=== PATIENT | female | born 2000 | race Caucasian/White ===

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

== ENCOUNTER → 2020-01-01 | Outpatient (REF) | payer BC, MEDICAID | LOC: M PLALAB 16:43 | PROVIDERS: ATTEND Advanced Practice Midwife | DX: Z34.03 Encounter for supervision of normal first pregnancy, third trimester (principal); Z3A.00 Weeks of gestation of pregnancy not specified ==

== ENCOUNTER → 2020-01-06 | Outpatient (CLI) | payer BC, MEDICAID ==
--- NOTE | 2020-01-06 14:26 | REP ---
Clinical: Growth evaluation. Comparison: 12/06/2019 . Findings: Examination demonstrates a single live intrauterine in cephalic presentation. motion is identified by technologist. Placenta is noted anterior and grade I I I without evidence for placenta previa or abruption. Amniotic fluid volume is normal. Cervix measures 3.8 cm in length and appears closed. No evidence for nuchal cord. Gestational age by LMP 37 weeks 3 days with EDIN 01/24/2020 . Gestational age by current measurements 35 weeks 3 days with EDIN 02/07/2020 . FHR equals 156 beats per minute. Estimated weight 2681 grams ( 24th percentile). Amniotic fluid index: 14.0 cm (7.4 - 24.2) Impression: Single live intrauterine in cephalic presentation demonstrating appropriate interval growth. Electronically Signed by Denny Woodall MD 01/06/2020 02:17 P
== END ==
LOC: M WHC 13:20
PROVIDERS: ATTEND Advanced Practice Midwife
DX: O26.843 Uterine size-date discrepancy, third trimester (principal); Z3A.35 35 weeks gestation of pregnancy

== ENCOUNTER 2020-01-18 09:25 | Inpatient (IN) | payer BC, MEDICAID | END 2020-01-20 08:00 | disposition home or self-care (01) | DRG 560 | LOC: M OBS 09:25 | PROVIDERS: ADMIT Obstetrics & Gynecology; ATTEND Obstetrics & Gynecology | PROC: 10E0XZZ Delivery of Products of Conception, External Approach (ICD-10-PCS; principal; 2020-01-18) | PROC: 10907ZC Drainage of Amniotic Fluid, Therapeutic from Products of Conception, Via Natural or Artificial Opening (ICD-10-PCS; 2020-01-18) | DX: O80 Encounter for full-term uncomplicated delivery (principal); Z3A.39 39 weeks gestation of pregnancy; Z37.0 Single live birth ==

== ENCOUNTER → 2020-08-06 | Outpatient (REF) | payer BC, MEDICAID ==
[2020-08-06 15:26] LABS: HEMOGLOBIN 12.2 g/dl (12.0-15.5); MEAN CORPUSCULAR HEMOGLOBIN 28.1 pg (27.0-33.0); MEAN CORPUSCULAR HGB CONC 31.3 g/dl (32.0-36.5); MEAN CORPUSCULAR VOLUME 89.9 fl (80.0-96.0); PLATELET COUNT, AUTOMATED 226 10^3/uL (150-450); RED BLOOD COUNT 4.34 10^6/uL (4.00-5.40); WHITE BLOOD COUNT 7.4 10^3/uL (4.0-10.0)
[2020-08-06 16:57] LABS: CHLAMYDIA DNA AMPLIFICATION NEGATIVE (NEGATIVE); GC DNA AMPLIFICATION NEGATIVE (NEGATIVE)
[2020-08-06 17:00] LABS: HEPATITIS C VIRUS ABY INDEX 0.1 INDEX (<0.8); HIV 1&2 SCREEN CENTAUR NEGATIVE (NEGATIVE)
== END ==
LOC: M PLALAB 14:14
PROVIDERS: ATTEND Advanced Practice Midwife
DX: Z34.91 Encounter for supervision of normal pregnancy, unspecified, first trimester (principal)

== ENCOUNTER → 2020-09-18 | Outpatient (CLI) | payer BC, MEDICAID ==
--- NOTE | 2020-09-18 13:31 | REP ---
INDICATION: ANATOMY. COMPARISON: None. TECHNIQUE: Standard 2nd trimester OB ultrasound anatomy screen. FINDINGS: Scanning demonstrates a viable single intrauterine gestation in a breech lie. motion is observed and heart rate is recorded at 152 beats per minute. A posterior, grade I placenta is seen without evidence of previa. Amniotic fluid is subjectively normal. Closed cervical length is measured at 3.1 cm transabdominally. No extrauterine abnormality is observed. Technologist notes indicate known EDIN 01/31/2021, 20 weeks 5 days today. No anomaly is seen. The following anatomic structures are identified and felt to be sonographically unremarkable: cranium, choroid plexus, cavum, cerebellum and posterior fossa, face and profile, lungs, four-chamber heart with left and right ventricular outflow tract views, diaphragm, left-sided stomach, abdominal wall cord insertion, three-vessel umbilical cord, kidneys and bladder and upper and lower extremities. The spine is incompletely evaluated due to the breech position. Biometry chart: BPD 4.3 cm; 19 weeks 0 days Head circumference 17.1 cm; 19 weeks 5 days Abdominal circumference 14.3 cm; 19 weeks 4 days Femur length 3.3 cm; 20 weeks 2 days Humeral length 3.2 cm; 20 weeks 4 days HC/AC ratio normal 1.20 Cephalic index 0.68 (0.7-0.86 normal range) Estimated weight 316 grams, 0 pounds 11 ounces, 10th percentile for 20 weeks 5 days. IMPRESSION: Viable single intrauterine gestation at 19 weeks 6 days by today's composite sonographic criteria. Expected gestational age estimate based on data provided is 20 weeks is 5 days. EDIN known 01/31/2021. No anomaly. Examination is incomplete in that the spine is incompletely evaluated due to breech position. This can be rechecked later in the 2nd trimester and growth may be reassessed. I do not know the source of the known EDIN provided nor am I aware of any prior ultrasound, none were done here. <Electronically signed by Ciaran Granado > 09/18/20 [id number]
== END ==
LOC: M WHC 09:24
PROVIDERS: ATTEND Obstetrics & Gynecology
DX: Z36.89 Encounter for other specified antenatal screening (principal); Z3A.20 20 weeks gestation of pregnancy

== ENCOUNTER → 2020-09-30 | Outpatient (CLI) | payer BC, MEDICAID | LOC: M WHC 15:27 | PROVIDERS: ATTEND Obstetrics & Gynecology | DX: Z53.20 Procedure and treatment not carried out because of patient's decision for unspecified reasons (principal) ==

== ENCOUNTER → 2020-10-19 | Outpatient (CLI) | payer BC, MEDICAID ==
--- NOTE | 2020-10-19 21:32 | REP ---
INDICATION: F/U ANATOMY COMPARISON: 09/18/2020 TECHNIQUE: Transabdominal obstetrical ultrasound with color Doppler evaluation. FINDINGS: Examination demonstrates a single live intrauterine in cephalic presentation. motion is identified by technologist. Placenta is noted posterior and grade 1 without evidence for placenta previa or abruption. Amniotic fluid volume is normal. Cervix measures 3.2 cm in length and appears closed.. Gestational age by LMP and 1st ultrasound 25 weeks 1 day with EDIN 01/31/2021. Gestational age by current measurements 24 weeks 3 days with EDIN 02/05/2021. FHR equals 151 beats per minute. Estimated weight 670 grams (10thpercentile). Anatomical assessment demonstrates normal structures including images of the spine. IMPRESSION: Single live intrauterine in cephalic presentation demonstrating relatively appropriate interval growth as above. In conjunction with prior examination anatomical assessment is complete and normal. <Electronically signed by Denny Woodall > 10/19/20 [id number]
== END ==
LOC: M WHC 15:29
PROVIDERS: ATTEND Obstetrics & Gynecology
DX: Z36.89 Encounter for other specified antenatal screening (principal); Z3A.22 22 weeks gestation of pregnancy

== ENCOUNTER → 2020-10-29 | Outpatient (REF) | payer BC, MEDICAID ==
[2020-10-29 15:32] LABS: HEMATOCRIT 34.1 % (36.0-47.0); HEMOGLOBIN 10.9 g/dl (12.0-15.5); MEAN CORPUSCULAR HEMOGLOBIN 27.5 pg (27.0-33.0); MEAN CORPUSCULAR VOLUME 86.1 fl (80.0-96.0); PLATELET COUNT, AUTOMATED 236 10^3/uL (150-450); RED BLOOD COUNT 3.96 10^6/uL (4.00-5.40); WHITE BLOOD COUNT 8.2 10^3/uL (4.0-10.0)
== END ==
LOC: M PLALAB 11:15
PROVIDERS: ATTEND Obstetrics & Gynecology
DX: Z36.89 Encounter for other specified antenatal screening (principal)

== ENCOUNTER → 2020-11-25 | Outpatient (CLI) | payer BC, MEDICAID ==
--- NOTE | 2020-11-27 02:03 | REP ---
INDICATION: IUGR,GROWTH COMPARISON: 10/19/2020 TECHNIQUE: Transabdominal obstetrical ultrasound with color Doppler evaluation. FINDINGS: Examination demonstrates a single live intrauterine in cephalic presentation. motion is identified by technologist. Placenta is noted posteriorly and grade 1 without evidence for placenta previa or abruption. Amniotic fluid volume is normal. Cervix measures 3.6 cm in length and appears closed.. Selected gestational age: 30 weeks 3 days with EDIN 01/31/2021. Gestational age by current measurements 29 weeks 2 days with EDIN 02/08/2021. FHR equals 142 beats per minute. BPD: 7.4 cm at 29 weeks 6 days HC: 27.6 cm at 30 weeks 1 day AC: 24.1 cm at 28 weeks 3 days FL: 5.5 cm at 29 weeks 0 days HL: 5.0 cm at 29 weeks 2 days HC/AC: 1.14 Estimated weight 1299 grams (less than 3rdpercentile). EZE: 10.9 cm (8.9-23.6) IMPRESSION: Single live advanced gestation in cephalic presentation. Estimated weight falls below the 3rd percentile. No gross abnormalities are identified. <Electronically signed by Denny Woodall > 11/27/20 [id number]
== END ==
LOC: M WHC 07:16
PROVIDERS: ATTEND Advanced Practice Midwife
DX: O36.5920 Maternal care for other known or suspected poor fetal growth, second trimester, not applicable or unspecified (principal); Z3A.29 29 weeks gestation of pregnancy

== ENCOUNTER → 2020-12-02 | Outpatient (CLI) | payer BC, MEDICAID ==
--- NOTE | 2020-12-03 07:52 | REP ---
INDICATION: BPP/CORD DOPPLERS/GROWTH COMPARISON: 11/25/2020 TECHNIQUE: Transabdominal obstetrical ultrasound with color Doppler evaluation. FINDINGS: Examination demonstrates a single live intrauterine in cephalic presentation. motion is identified by technologist. Placenta is noted posterior and grade 1 without evidence for placenta previa or abruption. Amniotic fluid volume is normal. Cervix measures 3.1 cm in length and appears closed.. Selected gestational age: 31 weeks 3 days with EDIN 01/31/2021. EZE: 10.2 cm Biophysical profile score: 8/8 FHR equals 146 beats per minute. Umbilical artery SD ratio: 2.00, 2.05 (1.87-3.93) IMPRESSION: Single live advanced gestation in cephalic presentation. Biophysical profile score and amniotic fluid volume are normal. <Electronically signed by Denny Woodall > 12/03/20 0749
== END ==
LOC: M WHC 12:38
PROVIDERS: ATTEND Advanced Practice Midwife
DX: O36.5930 Maternal care for other known or suspected poor fetal growth, third trimester, not applicable or unspecified (principal)

== ENCOUNTER → 2020-12-08 | Outpatient (CLI) | payer BC, MEDICAID ==
--- NOTE | 2020-12-08 09:50 | REP ---
INDICATION: IUGR,BPP W/CORD DOPPLERS. COMPARISON: 12/02/2020. TECHNIQUE: Real-time sonographic evaluation of gravid uterus performed. FINDINGS: There is a single living intrauterine gestation, estimated gestational age is reportedly 32 weeks 2 days, EDC 01/31/2021. position is cephalic. Placenta posterior and grade 2 with no previa. heart rate 147 beats per minute. Amniotic fluid is within normal limits. EZE 13.1, normal range 8.5-24.3. Biophysical profile score 8/8. SD ratio umbilical artery 2.52, normal range 1.83-3.84. RI 0.60, normal range 0.49-0.75. Middle cerebral artery SD ratio 6.22, RI 0.84. IMPRESSION: Biophysical profile score 8/8. <Electronically signed by Jose Manuel Cárdenas > 12/08/20 0946
== END ==
LOC: M WHC 08:28
PROVIDERS: ATTEND Advanced Practice Midwife
DX: O36.5930 Maternal care for other known or suspected poor fetal growth, third trimester, not applicable or unspecified (principal); Z3A.32 32 weeks gestation of pregnancy

== ENCOUNTER → 2020-12-15 | Outpatient (CLI) | payer BC, MEDICAID ==
--- NOTE | 2020-12-15 09:25 | REP ---
INDICATION: IUGR,GROWTH,BPP W/CORD DOPPLERS COMPARISON: 12/08/2020 TECHNIQUE: Transabdominal obstetrical ultrasound with color Doppler evaluation. FINDINGS: Examination demonstrates a single live intrauterine in cephalic presentation. motion is identified by technologist. Placenta is noted posterior and grade 2 without evidence for placenta previa or abruption. Amniotic fluid volume is normal. Cervix measures 3.6 cm in length and appears closed.. Selected gestational age: 33 weeks 2 days with EDIN 01/31/2021. Gestational age by current measurements 31 weeks 6 days with EDIN 02/10/2021. FHR equals 142 beats per minute. Estimated weight 1850 grams (10thpercentile). EZE: 14.2 cm (8.2-24.6) Biophysical profile score: 8/8 Umbilical artery SD ratio: 2.82 (1.77-3.74) IMPRESSION: Single live advanced gestation in cephalic presentation. Estimated weight and growth lower limits of normal range. Amniotic fluid volume and biophysical profile score normal. <Electronically signed by Denny Woodall > 12/15/20 [id number]
== END ==
LOC: M WHC 08:41
PROVIDERS: ATTEND Advanced Practice Midwife
DX: O36.5930 Maternal care for other known or suspected poor fetal growth, third trimester, not applicable or unspecified (principal); Z3A.33 33 weeks gestation of pregnancy

== ENCOUNTER → 2020-12-22 | Outpatient (CLI) | payer BC, MEDICAID ==
--- NOTE | 2020-12-22 09:07 | REP ---
INDICATION: IUGR,BPP W/CORD DOPPLERS COMPARISON: 12/15/2020 TECHNIQUE: Transabdominal obstetrical ultrasound with color Doppler evaluation. FINDINGS: Examination demonstrates a single live intrauterine in cephalic presentation. motion is identified by technologist. Placenta is noted posterior and grade 2 without evidence for placenta previa or abruption. Amniotic fluid volume is normal. Cervix measures 3.7 cm in length and appears closed.. Selected gestational age: 34 weeks 2 days with EDIN 01/31/2021. FHR equals 140 beats per minute. EZE: 14.1 cm Biophysical profile score: 8/8 Umbilical artery SD ratio: 2.90 (1.72-3.65) IMPRESSION: Single live advanced gestation in cephalic presentation. Amniotic fluid volume, biophysical profile score, and cord Doppler normal. <Electronically signed by Denny Woodall > 12/22/20 0918
== END ==
LOC: M WHC 08:39
PROVIDERS: ATTEND Advanced Practice Midwife
DX: O36.5930 Maternal care for other known or suspected poor fetal growth, third trimester, not applicable or unspecified (principal); Z3A.34 34 weeks gestation of pregnancy

== ENCOUNTER → 2020-12-30 | Outpatient (CLI) | payer BC, MEDICAID ==
--- NOTE | 2020-12-30 08:24 | REP ---
INDICATION: IUGR,GROWTH,BPP COMPARISON: 12/22/2020 TECHNIQUE: Transabdominal obstetrical ultrasound with color Doppler evaluation. FINDINGS: Examination demonstrates a single live intrauterine in cephalic presentation. motion is identified by technologist. Placenta is noted posterior and grade 1 without evidence for placenta previa or abruption. Amniotic fluid volume is normal. Cervix measures 3.1 cm in length and appears closed.. Selected gestational age: 35 weeks 3 days with EDIN 01/31/2021. Gestational age by current measurements 33 weeks 5 days with EDIN 02/12/2021. FHR equals 170 beats per minute. BPD: 8.6 cm at 34 weeks 5 days HC: 30.6 cm at 34 weeks 0 days AC: 28.4 cm at 32 weeks 3 days FL: 6.7 cm at 34 weeks 4 days HL: 5.7 cm at 32 weeks 6 days HC/AC: 1.08 Estimated weight 2187 grams (less than 3rdpercentile). EZE: 11.2 cm Biophysical profile score: 8/8 Umbilical artery SD ratio: 2.17, 2.52 (1.66-3.56) IMPRESSION: 1. Less than expected interval growth suggesting IUGR. 2. Amniotic fluid volume and biophysical profile score are normal. <Electronically signed by Denny Woodall > 12/30/20 [id number]
== END ==
LOC: M WHC 07:44
PROVIDERS: ATTEND Advanced Practice Midwife
DX: O36.5930 Maternal care for other known or suspected poor fetal growth, third trimester, not applicable or unspecified (principal); Z3A.35 35 weeks gestation of pregnancy

== ENCOUNTER → 2021-01-01 | Outpatient (REF) | payer BC, MEDICAID ==
[~2021-01-01] MED LIST: PRENTAB9 PO
== END ==
LOC: M SFHCWAGY 16:50
PROVIDERS: ATTEND Advanced Practice Midwife
DX: O36.5930 Maternal care for other known or suspected poor fetal growth, third trimester, not applicable or unspecified (principal); Z3A.00 Weeks of gestation of pregnancy not specified

== ENCOUNTER → 2021-01-06 | Outpatient (CLI) | payer BC, MEDICAID ==
--- NOTE | 2021-01-06 14:23 | REP ---
INDICATION: GROWTH. COMPARISON: Comparison study December 30, 2020.. TECHNIQUE: Limited obstetric sonography, transabdominal scanning. FINDINGS: Scanning through the gravid uterus demonstrates a viable single intrauterine gestation in cephalic lie. motion is observed and heart rate is recorded at 152 beats per minute. A 2 posterior placenta is seen, grade 2, without evidence of placenta previa. Closed cervical length is measured at 3.0 cm transabdominally. No extrauterine abnormality is observed. Amniotic fluid is subjectively normal. EZE is normal at 12.0 cm.. Biophysical profile score is 8 out of a possible 8. SD ratio in the umbilical cord artery by Doppler is normal at 2.64. IMPRESSION: Viable single intrauterine gestation at 36 weeks 3 days by previous composite sonographic criteria. EDIN by previous sonography January 31, 2021. No complication identified. <Electronically signed by Femi Miguel > 01/06/21 [id number]
== END ==
LOC: M WHC 13:33
PROVIDERS: ATTEND Advanced Practice Midwife
DX: O36.5930 Maternal care for other known or suspected poor fetal growth, third trimester, not applicable or unspecified (principal); Z3A.36 36 weeks gestation of pregnancy

== ENCOUNTER → 2022-04-21 | Outpatient (REF) | payer OTHER ==
[~2022-04-21] MED LIST changes: +MIRA3350 PO; +ONDA4TAB6 PO
[2022-04-21 17:34] LABS: HEMATOCRIT 45.6 % (36.0-47.0); HEMOGLOBIN 14.3 g/dl (12.0-15.5); MEAN CORPUSCULAR HEMOGLOBIN 28.2 pg (27.0-33.0); MEAN CORPUSCULAR HGB CONC 31.4 g/dl (32.0-36.5); MEAN CORPUSCULAR VOLUME 89.9 fl (80.0-96.0); PLATELET COUNT, AUTOMATED 280 10^3/uL (150-450); RED BLOOD COUNT 5.07 10^6/uL (4.00-5.40); WHITE BLOOD COUNT 7.3 10^3/uL (4.0-10.0)
[2022-04-21 18:16] LABS: ALBUMIN 4.1 GM/DL (3.2-5.2); ALT/SGPT 25 U/L (12-78); BILIRUBIN,TOTAL 0.5 MG/DL (0.2-1.0); BLOOD UREA NITROGEN 16 MG/DL (7-18); CALCIUM LEVEL 9.9 MG/DL (8.5-10.1); CARBON DIOXIDE LEVEL 23 MEQ/L (21-32); CHLORIDE LEVEL 107 MEQ/L (98-107); CHOLESTEROL LEVEL 148 MG/DL (<200); CHOLESTEROL RISK RATIO 3.609 (<5); CREATININE FOR GFR 0.74 MG/DL (0.55-1.30); GLOMERULAR FILTRATION RATE > 60.0 (>60); GLUCOSE, FASTING 87 MG/DL (70-100); HDL CHOLESTEROL 41 MG/DL (>40); LDL CHOLESTEROL 93 MG/DL (<100); NON-HDL-C 107 MG/DL; POTASSIUM SERUM 4.9 MEQ/L (3.5-5.1); SODIUM LEVEL 136 MEQ/L (136-145); TOTAL PROTEIN 7.7 GM/DL (6.4-8.2); TRIGLYCERIDES LEVEL 71 MG/DL (<150)
== END ==
LOC: M SFHCCLAY 10:26
PROVIDERS: ATTEND Family Medicine
DX: Z00.00 Encounter for general adult medical examination without abnormal findings (principal)

== ENCOUNTER 2022-04-23 19:52 | Emergency (ER) | payer OTHER ==
[~2022-04-23] VITALS: Ht 157.5 cm; Wt 45.5 kg
[~2022-04-23 19:52] MED LIST changes: -MIRA3350 PO; -ONDA4TAB6 PO
[2022-04-23 19:53] VITALS: BP 113/76
[2022-04-23 20:28] LABS: URINE PREG TEST NEGATIVE (NEGATIVE)
[2022-04-23 21:24] LABS: BASO % 0.4 % (0.0-1.0); EOS % 0.3 % (0.0-3.0); HEMATOCRIT 43.7 % (36.0-47.0); HEMOGLOBIN 14.1 g/dl (12.0-15.5); LYMPH # 2.1 10^3/uL (1.5-5.0); LYMPH % 26.4 % (24.0-44.0); MEAN CORPUSCULAR HEMOGLOBIN 28.3 pg (27.0-33.0); MEAN CORPUSCULAR HGB CONC 32.3 g/dl (32.0-36.5); MEAN CORPUSCULAR VOLUME 87.8 fl (80.0-96.0); MONO # 0.4 10^3/uL (0.0-0.8); NEUTROPHILS # 5.3 10^3/uL (1.5-8.5); NEUTROPHILS % 67.6 % (36.0-66.0); PLATELET COUNT, AUTOMATED 270 10^3/uL (150-450); RED BLOOD COUNT 4.98 10^6/uL (4.00-5.40); WHITE BLOOD COUNT 7.8 10^3/uL (4.0-10.0)
[2022-04-23 21:48] LABS: ALBUMIN 4.1 GM/DL (3.2-5.2); ALT/SGPT 21 U/L (12-78); BILIRUBIN,DIRECT 0.2 MG/DL (0.0-0.2); BILIRUBIN,TOTAL 0.4 MG/DL (0.2-1.0); BLOOD UREA NITROGEN 14 MG/DL (7-18); CALCIUM LEVEL 9.5 MG/DL (8.5-10.1); CARBON DIOXIDE LEVEL 25 MEQ/L (21-32); CHLORIDE LEVEL 108 MEQ/L (98-107); CREATININE FOR GFR 0.79 MG/DL (0.55-1.30); GLOMERULAR FILTRATION RATE > 60.0 (>60); GLUCOSE, FASTING 111 MG/DL (70-100); LIPASE 76 U/L (73-393); POTASSIUM SERUM 4.2 MEQ/L (3.5-5.1); SODIUM LEVEL 139 MEQ/L (136-145); TOTAL PROTEIN 7.5 GM/DL (6.4-8.2)
[2022-04-23] MEDS ORDERED: KETOROLAC 30 MG/ML 1ML VIAL IV ONE (23:00)
[2022-04-23] MEDS ORDERED: NS 1,000 ML IV ONE (23:05)
[2022-04-24] MEDS ORDERED: MIRA3350 PO (00:03)
[2022-04-24] MEDS ORDERED: ONDA4TAB6 PO (00:03)
[2022-04-24 01:36] LABS: GC DNA AMPLIFICATION NEGATIVE (NEGATIVE)
== END 2022-04-24 00:12 | disposition home or self-care (01) ==
LOC: M ED 19:52
DX: K59.00 Constipation, unspecified (principal); R10.814 Left lower quadrant abdominal tenderness; Z79.899 Other long term (current) drug therapy
CPT/HCPCS: 76856; 80048; 80076; 81000; 81015; 83690; 84703; 85025; 87661; 87810; 87850; 93976; 96374; 99283; J1885

== ENCOUNTER → 2023-02-28 | Outpatient (REF) | payer OTHER, MEDICAID ==
[~2023-02-28] MED LIST changes: +MIRA3350 PO; +ONDA4TAB6 PO
== END ==
LOC: M SFHCWAGY 17:46
PROVIDERS: ATTEND Nurse Practitioner Family
DX: Z12.4 Encounter for screening for malignant neoplasm of cervix (principal)

== ENCOUNTER → 2025-02-13 | Outpatient (CLI) | payer BC ==
[~2025-02-13] MED LIST changes: +ONDA-282 PO; -ONDA4TAB6 PO
[2025-02-13 14:12] LABS: PLATELET COUNT, AUTOMATED 193 10^3/uL (150-450)
[2025-02-13 15:09] LABS: HIV 1&2 SCREEN NEGATIVE (NEGATIVE)
[2025-02-13 15:17] LABS: Trichomonas vaginalis (AMP) NOT DETECTED (NEGATIVE)
[2025-02-13 15:18] LABS: HEPATITIS C VIRUS ABY INDEX 0.02 INDEX (<0.8)
[2025-02-13 15:41] LABS: GC DNA AMPLIFICATION NEGATIVE (NEGATIVE)
== END ==
LOC: M PLALAB 10:45
PROVIDERS: ATTEND Advanced Practice Midwife
DX: Z34.81 Encounter for supervision of other normal pregnancy, first trimester (principal)

== ENCOUNTER → 2025-04-14 | Outpatient (CLI) | payer BC, MEDICAID | LOC: M WHC 11:28 | PROVIDERS: ATTEND Specialist | DX: Z34.82 Encounter for supervision of other normal pregnancy, second trimester (principal) ==

== ENCOUNTER → 2025-04-24 | Outpatient (CLI) | payer BC | LOC: M PLALAB 15:15 | PROVIDERS: ATTEND Advanced Practice Midwife | DX: Z34.80 Encounter for supervision of other normal pregnancy, unspecified trimester (principal) ==

== ENCOUNTER → 2025-05-08 | Outpatient (REF) | payer BC ==
[2025-05-08 12:34] LABS: APPEARANCE, URINE HAZY (CLEAR); BACTERIA, URINE AUTO 3+ (NEGATIVE); BILIRUBIN, URINE AUTO NEGATIVE (NEGATIVE); BLOOD, URINE BLOOD NEGATIVE (NEGATIVE); GLUCOSE, URINE (UA) AUTO NEGATIVE (NEGATIVE); KETONE, URINE AUTO NEGATIVE (NEGATIVE); LEUKOCYTE ESTERASE, URINE AUTO 3+ (NEGATIVE); MUCUS, URINE SMALL (NEGATIVE); NITRITE, URINE AUTO NEGATIVE (NEGATIVE); PROTEIN, URINE AUTO NEGATIVE (NEGATIVE); RBC, URINE AUTO 0 /HPF (0-3); SPECIFIC GRAVITY URINE AUTO 1.009 (1.002-1.035); SQUAMOUS EPITHELIAL CELL UR AU 4 /HPF (0-6); UROBILINOGEN, URINE AUTO 0.2 mg/dL (0.0-2.0); WBC, URINE AUTO 3 /HPF (0-3)
== END ==
LOC: M LAB REF 12:07
PROVIDERS: ATTEND Physician Assistant
DX: N39.0 Urinary tract infection, site not specified (principal)

== ENCOUNTER → 2025-06-06 | Outpatient (CLI) | payer BC, OTHER ==
[2025-06-06 15:48] LABS: PLATELET COUNT, AUTOMATED 250 10^3/uL (150-450)
[2025-06-06 15:49] LABS: GLUCOSE CHALLENGE TEST 1 HOUR 93 MG/DL (LESS THAN 140)
[2025-06-06 16:24] LABS: HIV 1&2 SCREEN NEGATIVE (NEGATIVE)
[2025-06-06 16:32] LABS: HEPATITIS C VIRUS ABY INDEX 0.05 INDEX (<0.8)
[2025-06-06 16:44] LABS: Trichomonas vaginalis (AMP) NOT DETECTED (NEGATIVE)
[2025-06-06 17:08] LABS: GC DNA AMPLIFICATION NEGATIVE (NEGATIVE)
== END ==
LOC: M PLALAB 10:08
PROVIDERS: ATTEND Nurse Practitioner Family
DX: Z34.82 Encounter for supervision of other normal pregnancy, second trimester (principal)